=== PATIENT | male | born 1975 | race Caucasian/White ===

== ENCOUNTER 2016-12-10 17:25 | Emergency (ER) | payer BC, SELFPAY ==
[~2016-12-10] VITALS: Ht 165.1 cm; Wt 68.2 kg
[~2016-12-10 17:25] MED LIST: CIPR500S PO; FLAG500T PO; NORCOTAB PO; PENT500C PO; PERCOCET PO; PRED20TAB PO
[2016-12-10] MEDS ORDERED: LISI40TAB PO (17:42)
[2016-12-10] MEDS ORDERED: CATA0.1T PO (17:42)
[2016-12-10] MEDS ORDERED: NS 1,000 ML IV ONE (20:15)
[2016-12-10] MEDS ORDERED: ONDANSETRON 4MG/2ML VIAL (J2405) IV ONE (20:15)
[2016-12-10] MEDS: MORPHINE 4 MG/ML 1ML SYRINGE IV PRN ×2 (20:22→20:41)
[2016-12-10 20:33] LABS: BASO # 0.1 10^3/uL (0.0-0.2); BASO % 1.2 % (0.0-1.0); EOS # 0.4 10^3/uL (0.0-0.50); EOS % 5.5 % (0.0-3.0); IMMATURE GRANULOCYTE % 0.3 % (0-0); LYMPH % 25.7 % (24.0-44.0); MEAN CORPUSCULAR HEMOGLOBIN 32.9 pg (27.0-33.0); MEAN CORPUSCULAR HGB CONC 35.2 g/dl (32.0-36.5); MEAN CORPUSCULAR VOLUME 93.3 fl (80.0-96.0); MONO # 0.8 10^3/uL (0.0-0.8); MONO % 9.7 % (0.0-5.0); NEUTROPHILS # 4.4 10^3/uL (1.8-7.7); NEUTROPHILS % 57.6 % (36.0-66.0); PLATELET COUNT, AUTOMATED 240 10^3/uL (150-450); RED CELL DISTRIBUTION WIDTH 12.4 % (11.5-14.5); WHITE BLOOD COUNT 7.7 10^3/uL (4.0-10.0)
[2016-12-10] MEDS ORDERED: GASTROGRAFIN SOLUTION 30ML PO ONE (20:45)
[2016-12-10 21:02] LABS: ALBUMIN 3.9 GM/DL (3.2-5.2); ALKALINE PHOSPHATASE 82 U/L (45-117); ALT/SGPT 134 U/L (12-78); ANION GAP 7 MEQ/L (8-16); AST/SGOT 92 U/L (15-37); BILIRUBIN,DIRECT 0.3 MG/DL (0.0-0.2); BLOOD UREA NITROGEN 14 MG/DL (7-18); CALCIUM LEVEL 9.1 MG/DL (8.5-10.1); CARBON DIOXIDE LEVEL 29 MEQ/L (21-32); CHLORIDE LEVEL 105 MEQ/L (98-107); GLOMERULAR FILTRATION RATE > 60.0 (>60); GLUCOSE, FASTING 81 MG/DL (70-105); POTASSIUM SERUM 4.1 MEQ/L (3.5-5.1); SODIUM LEVEL 141 MEQ/L (136-145); TOTAL PROTEIN 7.8 GM/DL (6.4-8.2)
[2016-12-10] MEDS ORDERED: GASTROGRAFIN SOLUTION 30ML (Q9963) PO ONE (21:15)
[2016-12-10] MEDS ORDERED: ISOVUE-370 76% 100ML VIAL (Q9967) As Ordered ONE (22:30)
--- NOTE | 2016-12-10 23:00 | REPUSA ---
CT of the abdomen and pelvis with contrast Clinical statement: Pain. Technique: Multiple axial CT images were obtained from the base of the lungs through the floor of the pelvis utilizing 5 mm axial slices after administration of oral and nonionic intravenous contrast. C oronal and sagittal reconstructions were also obtained. Comparison: 11/14/2015. Findings: Chest: The visualized lung bases are clear. Abdomen: The liver, spleen, pancreas, kidneys, and adrenal glands are unremarkable. The aorta is with in normal limits. There is no evidence of abdominal lymphadenopathy or ascites. Pelvis: The bowel is unremarkable, with no obstructive or inflammatory changes. The appendix is stef l. The urinary bladder is within normal limits. The other pelvic structures appear grossly intact. Th ere is no evidence of pelvic lymphadenopathy or ascites. Bones: There are no suspicious osseous abnormalities seen. There is mild disc bulging at L5/S1. Impression: 1. No obstructive or inflammatory bowel changes at this time. 2. No evidence of ascites. 3. Mild stable disc bulging at L5/S1.
[2016-12-10] MEDS ORDERED: OXYC1TAB23 PO (23:21)
[2016-12-10] MEDS ORDERED: PRED20TA PO ×2 (23:21→23:31)
[2016-12-10] MEDS ORDERED: ZOFR4TAB3 PO ×2 (23:21→23:31)
[2016-12-10] MEDS ORDERED: predniSONE 20 MG TAB PO ONE (23:30)
[2016-12-10] MEDS ORDERED: ONDANSETRON 4 MG ORAL DISINTEGRATING TAB (S0181) PO ONE (23:30)
[2016-12-10] MEDS ORDERED: OXYCODONE/APAP 5MG/325MG(BULK FOR ED) 1 TABLET PO ONE (23:30)
[2016-12-10 23:31] VITALS: BP 135/76
[2016-12-10] MEDS ORDERED: PERC5TAB12 PO (23:31)
== END 2016-12-10 23:47 | disposition home or self-care (01) ==
LOC: M ED 17:25
DX: K50.90 Crohn's disease, unspecified, without complications (principal); Z72.0 Tobacco use
CPT/HCPCS: 74177; 80048; 80076; 81001; 83605; 83690; 85025; 96374; 96375; 96376; 99284; J2405; Q9963; Q9967